=== PATIENT | female | born 1975 | race Caucasian/White ===

== ENCOUNTER → 2020-01-14 10:50 | Outpatient (BNVA) | payer OTHER, SELFPAY | PROVIDERS: Family Provider Nurse Practitioner Family; Visit Provider Nurse Practitioner Psychiatric/Mental Health | DX: F33.1 Major depressive disorder, recurrent, moderate (principal); F90.2 Attention-deficit hyperactivity disorder, combined type | CPT/HCPCS: 99213 ==

== ENCOUNTER → 2020-02-25 08:28 | Outpatient (BNVA) | payer OTHER, SELFPAY | PROVIDERS: Family Provider Nurse Practitioner Family; Visit Provider Nurse Practitioner Psychiatric/Mental Health | DX: F33.1 Major depressive disorder, recurrent, moderate (principal); F90.2 Attention-deficit hyperactivity disorder, combined type; F41.1 Generalized anxiety disorder | CPT/HCPCS: 99212 ==

== ENCOUNTER → 2020-04-07 08:35 | Outpatient (BNVA) | payer OTHER, SELFPAY | PROVIDERS: Family Provider Nurse Practitioner Family; Visit Provider Nurse Practitioner Psychiatric/Mental Health | DX: F90.2 Attention-deficit hyperactivity disorder, combined type (principal); F33.1 Major depressive disorder, recurrent, moderate | CPT/HCPCS: 99212 ==

== ENCOUNTER → 2020-08-08 09:04 | Outpatient (BNVA) | payer OTHER, SELFPAY | PROVIDERS: Family Provider Nurse Practitioner Family; Visit Provider Nurse Practitioner Psychiatric/Mental Health | DX: F90.2 Attention-deficit hyperactivity disorder, combined type (principal); F33.1 Major depressive disorder, recurrent, moderate | CPT/HCPCS: 99212 ==

== ENCOUNTER → 2020-09-19 07:42 | Outpatient (BNVA) | payer OTHER, SELFPAY | PROVIDERS: Family Provider Nurse Practitioner Family; Visit Provider Nurse Practitioner Psychiatric/Mental Health | DX: F33.1 Major depressive disorder, recurrent, moderate (principal); F90.2 Attention-deficit hyperactivity disorder, combined type; R41.3 Other amnesia; Z63.0 Problems in relationship with spouse or partner | CPT/HCPCS: 99212 ==

== ENCOUNTER → 2020-11-15 08:30 | Outpatient (BNVA) | payer OTHER, SELFPAY | PROVIDERS: Family Provider Nurse Practitioner Family; Visit Provider Nurse Practitioner Psychiatric/Mental Health | DX: F90.2 Attention-deficit hyperactivity disorder, combined type (principal); Z63.0 Problems in relationship with spouse or partner; F33.1 Major depressive disorder, recurrent, moderate | CPT/HCPCS: 99213 ==

== ENCOUNTER → 2021-02-14 09:06 | Outpatient (BNVA) | payer OTHER, SELFPAY | PROVIDERS: Family Provider Nurse Practitioner Family; Visit Provider Nurse Practitioner Psychiatric/Mental Health | DX: F90.2 Attention-deficit hyperactivity disorder, combined type (principal); F33.1 Major depressive disorder, recurrent, moderate; Z63.0 Problems in relationship with spouse or partner | CPT/HCPCS: 99213 ==

== ENCOUNTER → 2021-03-23 08:28 | Outpatient (BNVA) | payer OTHER, SELFPAY | PROVIDERS: Family Provider Nurse Practitioner Family; Visit Provider Nurse Practitioner Psychiatric/Mental Health | DX: F90.2 Attention-deficit hyperactivity disorder, combined type (principal); F33.1 Major depressive disorder, recurrent, moderate; Z63.0 Problems in relationship with spouse or partner | CPT/HCPCS: 99214 ==

== ENCOUNTER 2021-06-24 18:04 | Emergency (ER) | payer BC, SELFPAY ==
[2021-06-24 18:31] VITALS: BP 131/76; PULSE 73; RESP 18; TEMP 36.4; O2SAT 98; BMI 33.6
--- NOTE | 2021-06-24 19:04 | CTR_ITS ---
PROCEDURE INFORMATION: Exam: CT Lumbar Spine Without Contrast Exam date and time: 06/24/2021 7:04 PM Age: 45 years old Clinical indication: Low back pain; Patient HX: C/O R flank/lbp w/o injury or dysuria; Additional info: Right back pain TECHNIQUE: Imaging protocol: Computed tomography images of the lumbar spine without contrast. Radiation optimization: All CT scans at this facility use at least one of these dose optimization techniques: automated exposure control; mA and/or kV adjustment per patient size (includes targeted exams where dose is matched to clinical indication); or iterative reconstruction. COMPARISON: CT kidney stone [id number] 06/24/2021 7:44 PM RADIATION DOSE METRICS: Total DLP (mGy-cm): 2147.4 FINDINGS: Vertebrae: Multilevel small lumbar marginal osteophyte formations. Multilevel mild facet arthropathy. No acute fracture. Normal alignment. There are mild to moderate degenerative changes across the sacroiliac joints, left greater than right. There is a transitional lumbosacral vertebra designated L5 for the purposes of this study. The L5 vertebra of bears a bat wing type left transverse process articulating with the sacrum. There are degenerative changes across this articulation. L1-L2: No significant disc protrusion. No severe spinal canal stenosis. No significant neural foraminal narrowing. L2-L3: No significant disc protrusion. No severe spinal canal stenosis. No significant neural foraminal narrowing. L3-L4: No significant disc protrusion. No severe spinal canal stenosis. No significant neural foraminal narrowing. L4-L5: No significant disc protrusion. No severe spinal canal stenosis. No significant neural foraminal narrowing. L5-S1: No significant disc protrusion. No severe spinal canal stenosis. No significant neural foraminal narrowing. Soft tissues: Unremarkable. CT/CT lumbar spine wo con* [id number] IMPRESSION: 1. There is a transitional lumbosacral vertebra designated L5 for the purposes of this study. The L5 vertebra of bears a bat wing type left transverse process articulating with the sacrum. There are degenerative changes across this articulation. 2. There are degenerative changes in the lumbar spine as described above. No evidence for acute fracture. 3. There are dell-gu-ynohpdoi degenerative changes across the sacroiliac joints, left greater than right. Radiation Dose CTDIVOL = (mGy): DLP = 2147.4 (mGy-cm)
--- NOTE | 2021-06-24 19:04 | CTR_ITS ---
PROCEDURE INFORMATION: Exam: CT Abdomen And Pelvis Without Contrast Exam date and time: 06/24/2021 7:04 PM Age: 45 years old Clinical indication: Abdominal pain; Right; Patient HX: C/O R flank/lbp w/o injury or dysuria; Additional info: R flank pain TECHNIQUE: Imaging protocol: Computed tomography of the abdomen and pelvis without contrast. Radiation optimization: All CT scans at this facility use at least one of these dose optimization techniques: automated exposure control; mA and/or kV adjustment per patient size (includes targeted exams where dose is matched to clinical indication); or iterative reconstruction. COMPARISON: CR Pelvis AP 1 or 2 views* [id number] 05/03/2018 11:37 PM RADIATION DOSE METRICS: Total DLP (mGy-cm): 1683.3 FINDINGS: Liver: Normal. No mass. Gallbladder and bile ducts: Normal. No calcified stones. No ductal dilation. Pancreas: Normal. No ductal dilation. Spleen: Normal. No splenomegaly. Adrenal glands: Normal. No mass. Kidneys and ureters: Normal. No hydronephrosis. Stomach and bowel: Colonic constipation is present. Appendix: No evidence of appendicitis. Intraperitoneal space: There is a physiologic amount of free fluid in the pelvis. Vasculature: Unremarkable. No abdominal aortic aneurysm. Lymph nodes: Unremarkable. No enlarged lymph nodes. Urinary bladder: Unremarkable as visualized. Reproductive: Unremarkable as visualized. Bones/joints: Unremarkable. No acute fracture. Soft tissues: Unremarkable. CT/CT kidney stone [id number] IMPRESSION: Colonic constipation is present. Radiation Dose CTDIVOL = (mGy): DLP = 1683.3 (mGy-cm)
--- NOTE | 2021-06-24 19:14 | ED_ITS ---
HPI - Back Pain/Injury General: Chief Complaint: Back Pain/Injury Stated Complaint: side and back pain Time Seen by Provider: 06/24/21 18:39 History of Present Illness: HPI Narrative: 45-year-old female with a history of right-sided back pain for the last 2 days. She notes right-sided back pain to the upper lumbar region, that radiates around to her right flank. No real change in her urine. No dysuria. No fever. No nausea or vomiting. She notes that she had coughed a few times yesterday, and the pain began to worsen after that. She presented to urgent care and was sent here. MD elicited complaint: back pain Pertinent past history: prior back pain (Similar pains in the past but not this bad.) Onset (ago): day(s) Timing: constant and progressively worsening Severity: moderate Quality: sharp and stabbing Location: lumbar spine and right flank Radiation: abdomen Exacerbating factors: movement Context: other (ukwn) Associated symptoms: Reports abdominal pain; Deny dysuria, fecal incontinence, fever(s), nausea, numbness, tingling/numbness/burning or vomiting Review of Systems Const: Denies: fever(s) Card: Denies: chest pain or palpitations Resp: Reports: non-productive cough; Denies: dyspnea or wheezing GI: Reports: abdominal pain; Denies: nausea, vomiting or fecal incontinence : Denies: dysuria Neuro: Denies: numbness in extremities or weakness in extremities PFS ED PFSH: Medical History (Updated 06/24/21 @ 21:07 by Heladio Krishna DO) ADHD (attention deficit hyperactivity disorder), combined type ADHD symptoms are responsive to current Vyvanse dosage. No side effects or cardiovascular side effects reported. Major depressive disorder, recurrent, moderate See comments below. Psychiatric care Social History (Updated 01/14/20 @ 11:09 by Rakel Parry LPN) Smoking and tobacco status: never smoked Physical Exam Const: GENERAL APPEARANCE: cooperative; not ill appearing and not frail appearing Chest: COMMONS NORMALS: normal inspection of the chest Resp: COMMON NORMALS: normal respiratory effort, No retractions, No use of accessory muscles and clear to auscultation bilaterally AUSCULTATION: clear to auscultation bilaterally Cardio: COMMON NORMALS: regular rate and regular rhythm RATE: regular rate RHYTHM: regular rhythm GI: COMMON NORMALS: Normal to inspection, nondistended, normoactive bowel sounds present, Soft to palpation and non-tender PALPATION: Yes Soft to palpation : BLADDER/KIDNEY EXAM: Yes CVA tenderness on the right Back/Pelvis: GENERAL BACK: Yes CVA tenderness OTHER: mid Line tenderness lumbar spine, tenderness to the right flank. No rash seen over the area pain is partially reproducible. Neuro: NOE COMA SCALE: document GCS findings Noe coma scale eye opening: Spontaneous Noe coma scale verbal response: Orientated [place] coma scale motor response: Obey commands Noe coma scale total score: 15 Course Vital Signs: Vital signs: Vital Signs Temperature 97.6 F 06/24/21 18:31 Pulse Rate 73 06/24/21 21:23 Respiratory Rate 16 06/24/21 21:23 Blood Pressure 137/81 06/24/21 21:23 Pulse Oximetry 99 06/24/21 21:23 MDM - Back Pain/Injury MDM Narrative: Medical decision making narrative: Laboratory is not remarkable. CT of the abdomen pelvis stone protocol reveals no acute findings. CT of the lumbar spine reveals significant degenerative change both of the lumbar spine, and sacroiliac joints. She will be treated with a tapering dose of steroid from neuritis related to back pain Lab Data: Labs: Lab Results 06/24/21 06/24/21 06/24/21 Range/Units 19:45 19:45 19:45 WBC 9.1 (4.0-10.0) 10^3/ uL RBC 4.76 (4.1-5.3) 10^6/u L Hgb 14.6 (11.5-15.3) g/dL Hct 44.2 (37.0-47.0) % MCV 92.9 (81-99) fl MCH 30.7 (28.0-34.0) pg MCHC 33.0 (30.0-36.0) g/dL RDW 12.5 (12.1-15.1) % Plt Count 302 (130-400) 10^3/c mm MPV 10.1 (7.4-10.4) fL Neut % (Auto) 54.3 % Lymph % (Auto) 33.1 % [place] % (Auto) 7.6 % Eos % (Auto) 3.8 % Baso % (Auto) 1.0 % Neut # (Auto) 4.92 (1.8-7.7) 10^3/u L Lymph # (Auto) 3.0 (0.8-4.8) 10^3/u L [place] # (Auto) 0.7 (0.2-0.9) 10^3/u L Eos # (Auto) 0.3 (0.0-0.8) 10^3/u L Baso # (Auto) 0.1 (0.0-0.1) 10^3/u L Nucleated RBC % (a uto) 0 % Nucleated RBCs # 0.0 /100WBC D-Dimer 0.52 (0-0.59) ug/mIFE U Sodium 141 (136-145) mmol/L Potassium 4.0 (3.5-5.1) mmol/L Chloride 106 (98-107) mmol/L Carbon Dioxide 24 (22-29) mmol/L Anion Gap 15.0 (5-19) BUN 15 (6-20) mg/dL Creatinine 0.9 (0.5-0.9) mg/dL GFR Calculation 68.0 L (90-130) mL/min Glucose 94 (65-115) mg/dL Calculated Osmolal ity 293 (285-295) mOsm/k g Calcium 8.8 (8.5-10.5) mg/dL Total Bilirubin 0.3 (0.15-1.2) mg/dL AST 12 (0-32) U/L ALT 12 (0-33) U/L Alkaline Phosphata se 75 (35-105) IU/L C-Reactive Protein 0.5 (0.0-4.9) mg/L Total Protein 5.8 L (6.6-8.7) g/dL Albumin 3.8 (3.5-5.2) g/dL Globulin 2.0 (1.3-4.6) g/dL Lipase 37 (13-60) U/L HCG, Qual (Negative) Urine Color (Yellow) Urine Appearance (CLEAR) Urine pH (5-7) Ur Specific Gravit y (1.005-1.030) Urine Protein (Negative) Urine Glucose (UA) (Normal) Urine Ketones (Negative) Urine Blood (Negative) Urine Nitrate (Negative) Urine Bilirubin (Negative) Urine Urobilinogen (Negative) mg/dL Ur Leukocyte Jerica ase (Negative) 06/24/21 06/24/21 Range/Units 19:45 20:50 WBC (4.0-10.0) 10^3/ uL RBC (4.1-5.3) 10^6/u L Hgb (11.5-15.3) g/dL Hct (37.0-47.0) % MCV (81-99) fl MCH (28.0-34.0) pg MCHC (30.0-36.0) g/dL RDW (12.1-15.1) % Plt Count (130-400) 10^3/c mm MPV (7.4-10.4) fL Neut % (Auto) % Lymph % (Auto) % [place] % (Auto) % Eos % (Auto) % Baso % (Auto) % Neut # (Auto) (1.8-7.7) 10^3/u L Lymph # (Auto) (0.8-4.8) 10^3/u L [place] # (Auto) (0.2-0.9) 10^3/u L Eos # (Auto) (0.0-0.8) 10^3/u L Baso # (Auto) (0.0-0.1) 10^3/u L Nucleated RBC % (a uto) % Nucleated RBCs # /100WBC D-Dimer (0-0.59) ug/mIFE U Sodium (136-145) mmol/L Potassium (3.5-5.1) mmol/L Chloride (98-107) mmol/L Carbon Dioxide (22-29) mmol/L Anion Gap (5-19) BUN (6-20) mg/dL Creatinine (0.5-0.9) mg/dL GFR Calculation (90-130) mL/min Glucose (65-115) mg/dL Calculated Osmolal ity (285-295) mOsm/k g Calcium (8.5-10.5) mg/dL Total Bilirubin (0.15-1.2) mg/dL AST (0-32) U/L ALT (0-33) U/L Alkaline Phosphata se (35-105) IU/L C-Reactive Protein (0.0-4.9) mg/L Total Protein (6.6-8.7) g/dL Albumin (3.5-5.2) g/dL Globulin (1.3-4.6) g/dL Lipase (13-60) U/L HCG, Qual Negative (Negative) Urine Color Yellow (Yellow) Urine Appearance Clear (CLEAR) Urine pH 5 (5-7) Ur Specific Gravit y 1.020 (1.005-1.030) Urine Protein Neg (Negative) Urine Glucose (UA) Norm (Normal) Urine Ketones Negative (Negative) Urine Blood Neg (Negative) Urine Nitrate Negative (Negative) Urine Bilirubin Neg (Negative) Urine Urobilinogen 4 H (Negative) mg/dL Ur Leukocyte Jerica ase Negative (Negative) Discharge Plan Discharge Patient Disposition: Home Clinical Impression: Lumbar spondylosis, Constipation Condition: Stable Prescriptions: New hydrocodone-acetaminophen 5-325 mg tablet 1 tab PO Q8H PRN (Reason: pain) Qty: 7 RF: 0 Medrol (Hector) 4 mg tablets,dose pack See Rx Instructions .ROUTE .COMPLEX Qty: 21 RF: 0 No Action cyclobenzaprine 10 mg tablet 10 mg PO TID PRN (Reason: muscle spasm) RF: 0 simvastatin 10 mg tablet 10 mg PO .QHS RF: 0 diphenhydramine-acetaminophen [Tylenol PM Extra Strength] 25-500 mg tablet 2 tab PO .QHS PRNRF: 0 metformin 500 mg tablet 500 mg PO BID RF: 0 metoprolol succinate 50 mg tablet extended release 24 hr 50 mg PO DAILY RF: 0 buspirone 15 mg tablet 15 mg PO .q evening Qty: 30 RF: 1 escitalopram oxalate 20 mg tablet 20 mg PO DAILY Qty: 30 RF: 1 Vyvanse 60 mg capsule 60 mg PO QAM 30 Days Qty: 30 RF: 0 lorazepam [Ativan] 1 mg tablet 1 mg PO .QHS PRN (Reason: sleep) 30 Days Qty: 30 RF: 2 Discharge Orders: Discharge ED (Routine); Ordered 06/24/21 Ordered By: Heladio Krishna Referrals: Harley,CÉSAR MarieN [Primary Care Provider] - Patient Instructions: Constipation (ED), Back Pain (ED), Opioid Safety Activity Restrictions/Additional Instructions: Return for urinary problems, fever greater than 100, worsening pain despite treatment, weakness, loss of control of of your bowel or bladder function, any other concerning symptoms. Coding Level of Care Code ED Assistant Professor Of Biology for Chg Fwd Exam Detailed
[2021-06-24] MEDS: ketorolac 30 mg/mL INJ 15 MG IVP (19:40)
[2021-06-24 19:58] LABS: Basophils # 0.1 10^3/uL (0.0-0.1); Eosinophils # 0.3 10^3/uL (0.0-0.8); Eosinophils % 3.8 %; Hematocrit 44.2 % (37.0-47.0); Hemoglobin 14.6 g/dL (11.5-15.3); Lymphocytes % 33.1 %; Mean Corpuscular Hemoglobin 30.7 pg (28.0-34.0); Mean Corpuscular Volume 92.9 fl (81-99); Mean Platelet Volume 10.1 fL (7.4-10.4); Monocytes # 0.7 10^3/uL (0.2-0.9); Monocytes % 7.6 %; Neutrophils # 4.92 10^3/uL (1.8-7.7); Neutrophils % 54.3 %; Nucleated Red Blood Cells % 0 %; Platelet Count 302 10^3/cmm (130-400); Red Blood Count 4.76 10^6/uL (4.1-5.3); Red Cell Distribution Width 12.5 % (12.1-15.1); White Blood Count 9.1 10^3/uL (4.0-10.0)
[2021-06-24 20:11] LABS: HCG, Serum Qual Negative (Negative)
[2021-06-24 20:16] LABS: D Dimer 0.52 ug/mIFEU (0-0.59)
[2021-06-24 20:18] LABS: Alanine Aminotransferase 12 U/L (0-33); Albumin Level 3.8 g/dL (3.5-5.2); Alkaline Phosphatase 75 IU/L (35-105); Aspartate Amino Transferase 12 U/L (0-32); Blood Urea Nitrogen 15 mg/dL (6-20); C Reactive Protein 0.5 mg/L (0.0-4.9); Calcium 8.8 mg/dL (8.5-10.5); Carbon Dioxide 24 mmol/L (22-29); Chloride 106 mmol/L (98-107); Creatinine Clr Calc Pharmacy 83.0018; Glucose 94 mg/dL (65-115); Lipase 37 U/L (13-60); Osmolality Calculated 293 mOsm/kg (285-295); Sodium 141 mmol/L (136-145); Total Bilirubin 0.3 mg/dL (0.15-1.2); Total Protein 5.8 g/dL (6.6-8.7)
[2021-06-24 20:47] VITALS: BP 134/74; PULSE 65; RESP 16; O2SAT 99
[2021-06-24 20:52] LABS: Add Urine Microscopic? NO; Charge for UA Resulting for Rev
[2021-06-24 20:56] LABS: Bilirubin Urine Neg (Negative); Blood Urine Neg (Negative); Glucose Urine UA Norm (Normal); Ketones Urine Negative (Negative); Leukocyte Esterase Urine Negative (Negative); Nitrate Urine Negative (Negative); Protein Urine Neg (Negative); Urine Appearance Clear (CLEAR); Urine Color Yellow (Yellow); Urobilinogen Urine 4 mg/dL (Negative); pH Urine 5 (5-7)
[2021-06-24 21:23] VITALS: BP 137/81; PULSE 73; RESP 16; O2SAT 99
== END 2021-06-24 21:33 | disposition home or self-care (01) ==
PROVIDERS: Emergency Provider Emergency Medicine; PCP Nurse Practitioner Family
DX: M47.816 Spondylosis without myelopathy or radiculopathy, lumbar region (principal); K59.00 Constipation, unspecified; Z79.84 Long term (current) use of oral hypoglycemic drugs
CPT/HCPCS: 72131; 74176; 80053; 81003; 83690; 84703; 85025; 85378; 86140; 96374; 99283; J1885

== ENCOUNTER 2021-07-14 14:04 | Outpatient (CLI) | payer BC, SELFPAY ==
--- NOTE | 2021-07-14 14:25 | MM_ITS ---
WS: [id number] BILATERAL DIGITAL DIAGNOSTIC MAMMOGRAM MAMMOGRAPHY WITH CAD CLINICAL INFORMATION: YESENIA AXILLARY PAIN COMPARISON: October 14, 2019 TECHNIQUE: Bilateral CC, MLO, and ML views. FINDINGS: Scattered fibroglandular densities bilaterally. Punctate calcifications left breast. No suspicious focal mass, asymmetry, calcifications, or architectural distortion. Ultrasound both axi lla is pending. ULTRASOUND BREAST BILATERAL TECHNIQUE: Ultrasound bilateral breast focused area of concern. CLINICAL INFORMATION: YESENIA AXILLARY PAIN COMPARISON: None. FINDINGS: Ultrasound bilateral axilla. Normal size left axillary lymph node measuring 9 x 7 mm. No suspicious a xillary findings. MM/[place] [id number] IMPRESSION: BI-RADS: 2-Benign FOLLOW UP: 1 Year Follow-up Recommend return to annual screening mammography.
== END 2021-07-14 14:05 | disposition home or self-care (01) ==
LOC: RADSHAW 14:08
PROVIDERS: PCP Nurse Practitioner Family; Visit Provider Nurse Practitioner Family
DX: M79.621 Pain in right upper arm (principal); M79.622 Pain in left upper arm
CPT/HCPCS: 76642; 77066

== ENCOUNTER 2021-11-07 09:32 | Emergency (ER) | payer SELFPAY ==
[2021-11-07 10:48] VITALS: BP 145/84; PULSE 87; RESP 16; TEMP 37; O2SAT 99
--- NOTE | 2021-11-07 10:53 | W.ED.COVID ---
HPI - COVID General: Chief Complaint: COVID symptoms Stated Complaint: covid+ Time Seen by Provider: 11/07/21 10:51 Triage information: Has fever, cough or shortness of breath. No known COVID + exposure last 14 days History of Present Illness: HPI Narrative: Patient test positive work today for Covid. Symptoms started last night. Patient complains about body aches chills. Desiring to have MCA infusion. Denies any significant shortness of breath, headache, loss of taste or smell. MD complaint: known COVID positive and has COVID symptoms Prior covid testing: yes, results known Prior testing date: 11/07/21 COVID 19 common symptoms: positive fever(s), chills, fatigue, body aches and nasal congestion; negative non-productive cough, productive cough, dyspnea, headache(s), nausea or vomiting COVID 19 other sytmptoms: negative chest pain Onset (ago): hour(s) Severity: mild Pertinent comorbid conditions: hypertension Treatment prior to arrival: none COVID Results: No Data to Display Review of Systems Const: Reports: fever(s), chills, body aches and fatigue Eyes: Denies: change in vision or blurry vision ENMT: Reports: nasal congestion Card: Denies: chest pain or dyspnea on exertion Resp: Denies: dyspnea, productive cough or non-productive cough GI: Denies: abdominal pain, nausea or vomiting Musc: Denies: extremity pain Skin/Breast: Denies: rash Neuro: Denies: headache(s) Psych: Denies: anxiety or depression Moiz/Lymph: Denies: easy bruising PFS ED PFSH: Medical History (Updated 11/07/21 @ 10:52 by SATISH Coleman) ADHD (attention deficit hyperactivity disorder), combined type ADHD symptoms are responsive to current Vyvanse dosage. No side effects or cardiovascular side effects reported. Major depressive disorder, recurrent, moderate See comments below. Psychiatric care Psychiatric care Social History (Updated 01/14/20 @ 11:09 by Rakel Sher LPN) Smoking and tobacco status: never smoked Physical Exam Const: COMMON NORMALS: no acute distress GENERAL APPEARANCE: cooperative Resp: COMMON NORMALS: normal respiratory effort GI: INSPECTION: Yes normal to inspection Psych: COMMON NORMALS: mental status grossly normal Skin: COMMON NORMALS: no rashes or lesions noted GENERAL SKIN EXAM: no rashes or lesions noted Course Vital Signs: Vital signs: Vital Signs Temperature 98.6 F 11/07/21 10:48 Pulse Rate 87 11/07/21 10:48 Respiratory Rate 16 11/07/21 10:48 Blood Pressure 145/84 11/07/21 10:48 Pulse Oximetry 99 11/07/21 10:48 MDM - COVID COVID Results: No Data to Display Discharge Plan Discharge Patient Disposition: Home Clinical Impression: COVID-19 Condition: Stable Prescriptions: New Decadron 6 mg tablet 6 mg PO DAILY Qty: 7 RF: 0 No Action hydrocodone-acetaminophen 5-325 mg tablet 1 tab PO Q8H PRN (Reason: pain) RF: 0 buspirone 15 mg tablet 15 mg PO .q evening Qty: 30 RF: 1 escitalopram oxalate 20 mg tablet 20 mg PO DAILY Qty: 30 RF: 1 cyclobenzaprine 10 mg tablet 10 mg PO TID PRN (Reason: muscle spasm) RF: 0 simvastatin 10 mg tablet 10 mg PO .QHS RF: 0 diphenhydramine-acetaminophen [Tylenol PM Extra Strength] 25-500 mg tablet 2 tab PO .QHS PRNRF: 0 metformin 500 mg tablet 500 mg PO BID RF: 0 metoprolol succinate 50 mg tablet extended release 24 hr 50 mg PO DAILY RF: 0 lorazepam 1 mg tablet 1 mg PO BID PRN (Reason: insomnia/anxiety ) Qty: 60 RF: 2 Vyvanse 60 mg capsule 60 mg PO QAM 30 Days Qty: 30 RF: 0 Vyvanse 60 mg capsule 60 mg PO QAM 30 Days Qty: 30 RF: 0 Discharge Orders: Discharge ED (Routine); Ordered 11/07/21 Ordered By: Chance Ferraro Referrals: Cynthia Souza APN [Primary Care Provider] - Discharge Diet: Usual diet Discharge Activity: Increase activity as tolerated Patient Instructions: COVID-19 (Coronavirus Disease 2019) (ED) Activity Restrictions/Additional Instructions: Follow-up with medical provider as directed. Take medications as prescribed. Return to the ER or your medical provider if condition worsens. Please read and understand discharge instructions. If any questions ask please. Call [facility] hotline at to set up an MCA infusion. Coding Level of Care Code ED Car Shakeout Operator for Ahmet Murry
[2021-11-07 11:18] VITALS: O2SAT 99
== END 2021-11-07 11:19 | disposition home or self-care (01) ==
PROVIDERS: Emergency Provider Nurse Practitioner Family; PCP Nurse Practitioner Family
DX: U07.1 COVID-19 (principal); Z79.84 Long term (current) use of oral hypoglycemic drugs
CPT/HCPCS: 99282

== ENCOUNTER 2021-11-09 08:34 | Outpatient (CLI) | payer OTHER, SELFPAY ==
[2021-11-09 08:42] VITALS: BP 158/82; PULSE 95; RESP 17; TEMP 36.7; O2SAT 99; BMI 49.1
[2021-11-09 09:13] VITALS: BP 131/81; PULSE 86; RESP 16; O2SAT 99
[2021-11-09 10:16] VITALS: BP 133/83; PULSE 77; RESP 16; TEMP 36.9; O2SAT 99
== END 2021-11-09 08:35 | disposition home or self-care (01) ==
LOC: OPS 08:44
PROVIDERS: PCP Nurse Practitioner Family; Visit Provider Nurse Practitioner Family
DX: U07.1 COVID-19 (principal)
CPT/HCPCS: 96365

== ENCOUNTER 2021-11-21 16:47 | Outpatient (CLI) | payer OTHER, SELFPAY ==
--- NOTE | 2021-11-21 | XR_ITS ---
WS: [id number] Exam: XR chest 2V* [id number] Date/Time of Exam: 11/21/2021 4:53 PM Reason For Exam: COUGH Comparison 05/03/2018. Findings: The lungs are clear and fully expanded. Costophrenic angles are sharp. No infiltrates. Bronchovascula r relief appears normal. Cardiac silhouette is unremarkable. Bony elements are intact. XR/XR chest 2V* [id number] IMPRESSION: Unremarkable chest radiograph.
== END 2021-11-21 16:48 | disposition home or self-care (01) ==
PROVIDERS: PCP Nurse Practitioner Family; Visit Provider Specialist
DX: R05.9 Cough, unspecified (principal)
CPT/HCPCS: 71046

== ENCOUNTER → 2022-07-19 09:21 | Outpatient (BNVA) | payer OTHER, SELFPAY | PROVIDERS: PCP Nurse Practitioner Family; Referring Provider Dermatology; Visit Provider Student in an Organized Health Care Education/Training Program | DX: M23.304 Other meniscus derangements, unspecified medial meniscus, left knee (principal) | CPT/HCPCS: 73560; 73565 ==

== ENCOUNTER 2022-07-31 07:52 | Outpatient (CLI) | payer OTHER, SELFPAY ==
--- NOTE | 2022-07-31 08:00 | MR_ITS ---
WS: [id number] MRI LEFT KNEE NONCONTRAST TECHNIQUE: Axial PD, coronal PD fat sat, coronal PD, sagittal PD, and sagittal PD fat-sat images obta ined. CLINICAL INFORMATION: Derangement of medial meniscus of left knee COMPARISON: FINDINGS: Distal quadriceps and patella tendons are intact. High-grade chronic tear of the ACL. This was presen t on the prior exam in 2018. Small suprapatellar effusion. Horizontal tear posterior horn medial meniscus extending to the articular surface and meniscal root. Chronic thinning of the lateral meniscus. Previously described bone contusions in 2018 have resolved. Medial and lateral collateral ligaments a re grossly intact. Normal popliteus. Normal popliteal fossa. Mild chondromalacia patella. No subchond ral edema. Normal medial and lateral patellar retinaculum. MR/MR knee LT wo con* [id number] IMPRESSION: 1. High-grade chronic tear of the ACL was present in 2018. Normal PCL. 2. New horizontal tear involving the posterior horn medial meniscus extending to the meniscal root and articular surface peripherally. This is new from previ ous. No acute lateral meniscal tears. 3. Normal medial and lateral collateral ligaments. 4. Mild chondromalacia patella. No subchondral edema. 5. Normal popliteal fossa. 6. Small suprapatellar effusion. Outbridge grading:
== END 2022-07-31 07:53 | disposition home or self-care (01) ==
LOC: RAD 07:53
PROVIDERS: Visit Provider Student in an Organized Health Care Education/Training Program
DX: M23.304 Other meniscus derangements, unspecified medial meniscus, left knee (principal); S83.512A Sprain of anterior cruciate ligament of left knee, initial encounter; X58.XXXA Exposure to other specified factors, initial encounter; M25.462 Effusion, left knee; M22.42 Chondromalacia patellae, left knee
CPT/HCPCS: 73721

== ENCOUNTER 2022-08-29 05:49 | Day surgery (SDC) | payer OTHER, SELFPAY ==
[2022-08-28 12:15] VITALS: BMI 36.6
[2022-08-29] VITALS (20 sets, daily range): BP systolic 113–144; BP diastolic 63–89; PULSE 78–123; RESP 12–18; TEMP 36.2–37; O2SAT 93–100
--- NOTE | 2022-08-29 | SCC_ITS ---
12 seconds of fluoroscopic guidance, for a cumulative dose of 0.3 mGy, was provided to Dr. Recinos by the radiology department. No permanent C-kori images were obtained. [facility]
[2022-08-29] MEDS: sodium chloride 0.9% 1,000 ML 30 ML IV (06:39)
[2022-08-29] MEDS: ketorolac 30 mg/mL INJ IVP (06:39)
[2022-08-29] MEDS: acetaminophen 1,000 MG/100 ML PIGGYBACK 400 MG IV (06:39)
[2022-08-29 06:44] LABS: OR HCG Qualitative Urine Negative (Negative)
--- NOTE | 2022-08-29 07:02 | W.PM.OPSUD ---
Surgery/Procedure H&P Update DATE OF PROCEDURE: August 29, 2022 DATE H&P PERFORMED: 08/17/22 CHANGES TO PREVIOUS DOCUMENTATION: None PREOP DIAGNOSIS: Left knee complete ACL tear, medial meniscus tear PRIMARY INDICATION FOR PROCEDURE: Left knee complete ACL tear and medial meniscus tear PLANNED PROCEDURE: Operation Date: 08/29/22 07:00 Proposed Procedures p LEFT KNEE DIAGNOSTIC AND SURGICAL ARTHROSCOPIC ASSISTED ANTERIOR CRUCIATE LIGAMENT RECONSTRUCTION WITH QUAD TENDON ALLOGRAFT [id number], PARTIAL MEDIAL MENISCECTOMY VERSUS MENISCAL REPAIR [id number],M23.304(Left) - Lc Recinos DO s PARTIAL MEDIAL MENISCECTOMY VERSUS MENISCAL REPAIR [id number]](Left) - Lc Recinos DO
--- NOTE | 2022-08-29 08:32 | ANES.PREANE2 ---
Pre-Anesthetic Assessment Height/Weight: Height 1.57 m Weight 90.718 kg Temp Pulse Resp BP Pulse Ox O2 Del Method 98.6 F 78 18 137/80 97 08/29/22 06:20 08/29/22 06:20 08/29/22 06:20 08/29/22 06:20 08/29/22 06:20 08/29/22 06:20 Preop Diagnosis: Left knee complete ACL tear, medial meniscus tear Operation Date: 08/29/22 07:00 Proposed Procedures p LEFT KNEE DIAGNOSTIC AND SURGICAL ARTHROSCOPIC ASSISTED ANTERIOR CRUCIATE LIGAMENT RECONSTRUCTION WITH QUAD TENDON ALLOGRAFT 84232, PARTIAL MEDIAL MENISCECTOMY VERSUS MENISCAL REPAIR 06771,M23.304(Left) - Lc Recinos DO s PARTIAL MEDIAL MENISCECTOMY VERSUS MENISCAL REPAIR [id number]](Left) - Lc Recinos DO Familial anesthetic complications: none Was Beta Conrado taken within 24 hours: N/A Was Clonidine taken within 24 hours: N/A Last intake: Intake Last Liquid Date 08/28/22 Last Liquid Time 20:30 Last Solid Date 08/28/22 Last Solid Time 19:00 Social No alcohol and No tobacco Exam alert, oriented x 3, clear to auscultation bilaterally and regular rate & rhythm Airway Submandibular: within normal limits Cervical ROM: within normal limits Mallampati: Class II Dentition: full Metabolic Diabetes Mellitus, Hyperlipidemia and Morbid Obesity Neuropsych Anxiety and Depression Anesthetic Plan ASA status: 2 Anesthesia: General and Regional (specify below) (adductor blk) Medications/Allergies Home Medications Medication Instructions Recorded Confirmed Last Taken Type diphenhydramine 25 2 tab PO .QHS PRN Sleep 01/14/20 08/29/22 08/28/22 20:00 History mg-acetaminophen 500 mg tablet (Tylenol PM Extra Strength) simvastatin 10 mg tablet 10 mg PO .QHS 01/14/20 08/29/22 08/28/22 20:00 History metformin 500 mg tablet 500 mg PO BID 06/20/21 08/29/22 08/28/22 08:00 History omeprazole 40 mg capsule,delayed 40 mg PO DAILY 02/22/22 08/29/22 08/29/22 05:15 History release lisdexamfetamine 60 mg capsule 60 mg PO QAM 30 days #30 caps 07/10/22 08/29/22 08/28/22 08:00 Rx (Vyvanse) escitalopram oxalate 20 mg tablet 20 mg PO DAILY #30 tabs 08/09/22 08/29/22 08/28/22 20:00 Rx lorazepam 1 mg tablet 1 mg PO BID PRN insomnia/anxiety 08/09/22 08/29/22 08/28/22 20:00 Rx #60 tabs Allergies Allergy/AdvReac Type Severity Reaction Status Date / Time No Known Allergies Allergy Verified 08/28/22 12:13 Current Medications Generic Name Dose Route Start Last Admin Trade Name Laura PRN Reason Stop Dose Admin Sodium Chloride 1,000 mls @ 30 mls/hr 08/29/22 06:15 08/29/22 06:39 Sodium Chloride 0.9% IV 08/30/22 06:14 30 mls/hr .Q24H BISHOP Administration PFSH Anesthesia Medical History (Updated 08/11/22 @ 22:28 by Lc Recinos DO) ADHD (attention deficit hyperactivity disorder), combined type ADHD symptoms are responsive to current Vyvanse dosage. No side effects or cardiovascular side effects reported. Derangement of medial meniscus of left knee Left ACL tear Major depressive disorder, recurrent, in partial remission Major depressive disorder, recurrent, moderate See comments below. Psychiatric care Psychiatric care Tear of medial meniscus of left knee Social History Smoking and tobacco status: never smoked Second hand smoke exposure: Yes (Occaxsionally.) Smoking risk assessment/counseling performed?: No Alcohol intake: never Desire information about alcohol rehabilitation?: No Counseling given: No Data Anesthesia Cardiac Studies: No Data to Display Anesthesia Procedures Nerve Block Nerve Block 1: Main Anesthesia: general anesthesia Time Out Performed: Yes Consent: requested by attending/covering physician, from patient, risks and benefits reviewed and patient agrees to proceed Nerve block location: adductor canal (left) Anesthesia monitors applied: pulse oximetry, EKG, BP cuff and oxygen Nerve block position: supine Anesthetic Used: ropivicaine 0.5% Amount of anesthesia used (mL): 20 Ultrasound used to: recognize landmarks Nerve Stimulator Used?: No Interscalene/Femoral BLK: 4 stimuplex 21 g needle used for position and inplane approach Injection: neg aspiration of heme Patient Tolerated Procedure: well Complications: none
--- NOTE | 2022-08-29 10:44 | PM.OP2 ---
Brief Operative Note Date of procedure: 08/29/22 Pre-op diagnosis: Left knee complete ACL tear, medial meniscus tear Post-op diagnosis: same Procedure Done: Left knee diagnostic and surgical arthroscopy, with arthroscopic assisted ACL reconstruction with quadricep tendon allograft, partial medial meniscectomy Surgeon: Lc Recinos Estimated blood loss (mL): 15 Complications: None Post-op Plan: Patient recovering well in PACU. Patient will receive appropriate discharge instructions as well as DVT prophylaxis and pain medication. ACL hinged knee brace on in place will be locked in full extension for patient to weight-bear partial weightbearing 30 to 50% utilizing crutches. We will progress her weightbearing in 2 weeks. Work on range of motion with full range of motion. patient to follow-up with Dr. Recinos in the office in 2 weeks. Condition: stable Disposition: same day Coding Level of Care Code Acute Supervisor Dock for Ahmet Murry
--- NOTE | 2022-08-29 10:45 | PC.NURSE ---
Physical Therapy notified of need for ACL hinged brace
--- NOTE | 2022-08-29 10:47 | PM.PACU ---
PACU note Narrative: Patient recovering with patient's distal pulses palpable. Patient toes warm well perfused. Dressing on in place clean dry and intact ACL hinged knee brace on in place. Patient able to wiggle toes plantarflex and dorsiflex ankle. Not sensation tact light touch distally. Exam: awake (See narrative for detailed exam ) Disposition: discharged
--- NOTE | 2022-08-29 10:48 | PM.OP ---
Operative Report Date of procedure: August 29, 2022 Pre-op diagnosis: Preop Diagnosis Left knee complete ACL tear, medial meniscus tear Post-op diagnosis: Same Chondromalacia grade 1 patellofemoral compartment chondromalacia grade 1 medial compartment Chondromalacia grade 1 lateral compartment Procedure done: Diagnostic and surgical arthroscopy left knee with arthroscopic assisted ACL reconstruction with quadricep tendon allograft (Arthrex graft link), partial medial meniscectomy Implants: Arthrex graft link allograft ACL Tight rope ABS button and internal brace ligament augmentation 2 x biocomposite Arthrex 4.75 swivel locks. Surgeon: Lc Recinos DO Estimated blood loss: 15 mL 114 minutes IV fluids: See anesthesia record Complications: None Findings: See operative report narrative Condition: stable Disposition: same day Brief History: Cortney Bergman is a pleasant 46-year-old female who was seen and worked up in the outpatient setting and an MRI found to have a complete ACL tear as well as a medial meniscus tear. She states she had had a prior partial tear of her ACL but now this is went on to being complete. She did complain of some episodes of recurrent instability and she felt this is led to her meniscal tear. We had a long thoughtful discussion about her treatment options as far as leaving the ACL alone and just fixing the meniscus she does understand the risk benefits complication alternatives to surgical and nonsurgical treatment options. At this point given the persistent pain as well as feelings of instability and not trusting her knee as well she is still young active and well-maintained joint space she would like to have her ACL reconstructed alongside meniscus repair versus partial meniscectomy. Once again she understands the risk benefits complication alternatives to each treatment option she agrees to shared decision made to proceed with surgical intervention. We will proceed with a diagnostic and surgical arthroscopy of the left knee with arthroscopic assisted ACL reconstruction utilizing quadricep tendon allograft and medial meniscus repair versus partial meniscectomy. Consent obtained. Agrees to proceed with surgery. All questions answered. Procedure: Patient seen evaluated in the preoperative holding area. Consent was reviewed with patient correct extremity was then marked. Patient was then seen evaluated by the anesthesia department and once cleared for surgery she was then taken back to the operative suite and placed on the operative table in supine position all bony prominences well-padded. Patient underwent anesthesia per the anesthesia department. The left lower extremity had a nonsterile tourniquet applied. The foot of the bed was then dropped all legs were appropriately secured. The left lower extremity was then prepped and draped in standard orthopedic fashion. Final timeout performed.. Patient received appropriate preoperative antibiotics. Knee was examined preoperatively found to have a pivot shift and a positive Katherine's. Esmarch was used to exsanguinate the left lower extremity and tourniquet was insufflated. Standard diagnostic and surgical arthroscopy was performed of the left knee starting with an inferior lateral portal has my arthroscope visualization. Suprapatellar pouch free of loose bodies patellofemoral joint inflamed synovium however no significant chondromalacia only grade 1. Medial gutter clear of loose bodies medial compartment showed a bucket-handle tear flipped into the intercondylar notch. I then established my medial working portal in vertical fashion. I then utilized the blunt probe to reduce the bucket-handle tear to evaluate if this would be repairable or not. At this point in time I then noticed that this tear was within the white white zone peripherally. This tear was nonrepairable and was noted to not have just a simple clean meniscal tear pattern this was complex in nature near repairable. As result decision was made to perform a left knee partial medial meniscectomy I utilized the arthroscopic shaver and biter to perform partial medial meniscectomy to remove the bucket-handle tear. I then probed the meniscal root which was intact and stable. I then anneal the edges with a thermal wand of the partial medial meniscectomy and this was all taken to stable meniscal tissue and this completed my partial medial meniscectomy Looked at the intercondylar notch and noted the complete ACL tear off the lateral femoral condyle this point time the allograft was then set to thaw. Then performed debridement of the ACL left the footprint for anatomic landmarks for tibial tunnel placement. I then debrided the intercondylar notch and performed a small notchplasty for appropriate graft shuttling and bone marrow stimulation. I utilized thermal wand to identify the back wall of the lateral femoral condyle for appropriate anatomic placement of my femoral tunnel. Next I evaluated the lateral compartment which showed no meniscal tear and had grade I chondromalacia. The lateral gutter inspected free of loose bodies. I did evaluate the retrograde she had space no loose bodies were noted. At this point time I prepped my allograft on the back table my total graft length was 67 mm. We had 15 mm for the femoral tunnel of soft tissue in my suture as well as then roughly 18 mm plan for with my tibial tunnel suture. At this point time we made our adjustments to her tibial tunnel appropriately. Next I reintroduced the arthroscope into the knee and we proceeded with drilling my femoral tunnel. We utilized the outside in guides. I had direct visualization of the back wall and placed my femoral guide in appropriate position leaving roughly 2 to 3 mm of backwall left. The size for my graft was 10 and 10.5 mm. 10 mm drill tunnel for the femur guidance. I then drilled my flip cutter reamer utilizing the guide once I confirmed that this was appropriately placed I then set the reverse flip cutter to 10 mm and reamed to a femoral socket to roughly 25 mm. This was then removed and introduced the arthroscopic shaver to free of all bone debris. Once this was done I then utilized my shuttling suture passed this and utilize a hemostat for later graft passage. Next I plan for my tibial tunnel. I then utilized my tibial tunnel guide set at appropriate measurement accommodating my intra-articular graft distance. With care to make sure that our graft does not bottom out while tensioning. Incision was made on the anterior medial face of the tibia. Guide was set directly to bone I then drilled and had excellent anatomic placement at the resting tibial footprint of the ACL. I then used my flip cutter and set it to 10.5 mm and took this down to 30 mm for my tibial bone tunnel. I then introduced my shuttling stitch to grasp this and pulled both the femur and the tibial shuttling stitch out of the anteromedial portal. At this point time I was ready for passing of my graft. I incised my portal site to accommodate for the graft passage. Femur suture loops were then grasped and I shuttled the femoral end of my graft length into the femoral plug this was held in appropriate back tension by my assistant maintenance manager. I shuttled the Arthrex button and once it passed the tunnel it then did flip I brought in mini C arm noted this appeared to be not directly onto bone and as a result I made a small incision extended from my lateral incision where my guide was placed to verify button this was outside of the IT band I then incised the IT band watched as the button flipped as my assistant maintenance manager pulled back tension and this flipped directly onto bone. At this point they held back tension I utilized my tibial shuttling suture to shuttle my tibial sutures into the tibial tunnel. I then sequentially pulled and introduced the graft into the tibial tunnel this had excellent placement with no difficulties. This is an appropriate position and tension. While holding tension in full extension I then introduced the Arthrex tibial button. My sutures as well as my internal brace were passed through this and I sequentially tightened down my ACL button. At this point I made sure all slack was out of the internal brace and then sequentially tensioned my tibia. Once tibia was then tensioned I then performed multiple Katherine's and range the knee 30x2 get creep out of the graft. I next went in attention to the femur side 1 final time which had excellent tension and then tensioned lastly at the tibia. This completed and had excellent fixation with a firm endpoint with my Katherine's examination negative pivot shift. I then cleared off the periosteum distally loaded up my internal brace with a Arthrex 475 swivel lock I sequentially drilled and then tapped and attempted to place my 475 swivel lock. This appeared to be stripping and I subsequently removed the swivel lock and loaded the new one redrilled read tapped with a larger tap and then subsequently impacted my 4.75 swivel lock Arthrex to complete my internal brace for backup fixation. Swivel lock had no pullout. Sutures excess were cut. The tensioning sutures of the tibia were tensioned 1 final time and sequentially tied and suture excess suture was cut. At this point time is completed the procedure. All wounds were then thoroughly irrigated. I brought the arthroscope in for a final x-ray of a well tensioned ACL reconstruction. Wounds were then irrigated arthroscope removed and all fluid was suctioned out of the joint. Tourniquet was deflated. Hemostasis satisfactory. Incisions closed with 0 Vicryl 2-0 Vicryl Monocryl Steri-Strips 4 x 4's ABD Curlex soft roll and an Koby wrap ACL hinged brace was then applied. This was locked in full extension. This was placed on before patient woke up. Patient was awakened from anesthesia and taken to PACU in stable condition. Disposition: Patient will be taken to PACU in stable condition. ACL hinged brace on in place. Patient will be partial weightbearing 30 to 50% utilizing crutches and will begin progressing her weightbearing in 2 weeks. We will get her set up with physical therapy. She will follow-up with Dr. Recinos in 2 weeks. Given appropriate discharge instructions as well as pain medication and DVT prophylaxis postoperatively.
--- NOTE | 2022-08-29 11:07 | PC.NURSE ---
Physical Therapy here with ACL brace
[2022-08-29] MEDS: fentaNYL 50 mcg/mL INJ 2mL IVP ×2 (11:11→11:33)
[2022-08-29] MEDS: HYDROcodone-acetaminophen 5-325 mg Tablet 1 TAB PO (12:05)
--- NOTE | 2022-08-29 13:56 | SUR.PHASEII ---
Phase II complete at 1300, awaiting HOME to bring walker for patient to be sent home with.
--- NOTE | 2022-08-29 13:58 | SUR.PHASEII ---
Walker delivered at 1340. Patient instructed on use. Patient then discharged at 1345 with daughter.
--- NOTE | 2022-08-29 17:39 | ANE.PACU2 ---
Inpatient post-anesthesia follow up: Airway intact: Yes Vital signs: Temperature 97.8 F Pulse Rate 101 Respiratory Rate 16 Blood Pressure 137/79 Pulse Oximetry 93 Oxygen Delivery Me thod Room Air Oxygen Flow Rate 8 Fraction of Inspir ed Oxygen Hydration adequate: Yes Nausea and vomiting: No Pain level: 3 Mental status: Baseline
[2022-08-30 06:17] LABS: Glucose Point of Care 139 mg/dL (70-110)
== END 2022-08-29 13:58 | disposition home or self-care (01) ==
PROVIDERS: Anesthesiology; PCP Family Medicine; Visit Provider Student in an Organized Health Care Education/Training Program
PROC: (CPT 27407; principal; 2022-08-29 07:00)
PROC: (CPT 29881; 2022-08-29 07:00)
DX: S83.512A Sprain of anterior cruciate ligament of left knee, initial encounter (principal); S83.242A Other tear of medial meniscus, current injury, left knee, initial encounter; X58.XXXA Exposure to other specified factors, initial encounter; E11.9 Type 2 diabetes mellitus without complications; E78.5 Hyperlipidemia, unspecified; E66.01 Morbid (severe) obesity due to excess calories; Z68.36 Body mass index [BMI] 36.0-36.9, adult; F41.9 Anxiety disorder, unspecified; F32.A Depression, unspecified; Z79.84 Long term (current) use of oral hypoglycemic drugs
CPT/HCPCS: 29881; 29888; 36416; 73560; 76000; 82962; 84703; C1713; J0131; J1100; J1170; J1200; J1885; J2250; J2370; J2405; J2704; J2795; J3010; J3490; J7030

== ENCOUNTER 2022-08-29 14:42 | Outpatient (CLI) | payer OTHER, SELFPAY | END 2022-08-29 14:43 | disposition home or self-care (01) | LOC: SPT 14:43 | PROVIDERS: PCP Family Medicine; Visit Provider Student in an Organized Health Care Education/Training Program | DX: Z46.89 Encounter for fitting and adjustment of other specified devices (principal); S83.512D Sprain of anterior cruciate ligament of left knee, subsequent encounter; S83.242D Other tear of medial meniscus, current injury, left knee, subsequent encounter; X58.XXXD Exposure to other specified factors, subsequent encounter | CPT/HCPCS: 97760; L1832 ==

== ENCOUNTER 2022-08-31 13:46 | Outpatient (CLI) | payer OTHER, SELFPAY ==
[2022-08-31 14:02] LABS: Basophils # 0.1 10^3/uL (0.0-0.1); Basophils % 1.1 %; Eosinophils # 0.3 10^3/uL (0.0-0.8); Eosinophils % 3.7 %; Hematocrit 40.6 % (37.0-47.0); Hemoglobin 13.8 g/dL (11.5-15.3); Lymphocytes # 2.3 10^3/uL (0.8-4.8); Lymphocytes % 30.9 %; Mean Corpuscular Hemoglobin 31.4 pg (28.0-34.0); Mean Corpuscular Volume 92.3 fl (81-99); Mean Platelet Volume 8.7 fL (7.4-10.4); Monocytes # 0.5 10^3/uL (0.2-0.9); Monocytes % 6.7 %; Neutrophils # 4.22 10^3/uL (1.8-7.7); Neutrophils % 57.3 %; Nucleated Red Blood Cells % 0 %; Platelet Count 310 10^3/cmm (130-400); Red Cell Distribution Width 12.6 % (12.1-15.1); White Blood Count 7.4 10^3/uL (4.0-10.0)
== END 2022-08-31 13:47 | disposition home or self-care (01) ==
LOC: LAB 13:49
PROVIDERS: PCP Family Medicine; Visit Provider Family Medicine
DX: D70.9 Neutropenia, unspecified (principal)
CPT/HCPCS: 36415; 85025

== ENCOUNTER 2022-09-07 06:00 | Outpatient (RCR) | payer OTHER, SELFPAY | END 2022-10-03 23:59 | disposition home or self-care (01) | LOC: SPT 06:00 | PROVIDERS: PCP Family Medicine; Visit Provider Student in an Organized Health Care Education/Training Program | DX: M23.612 Other spontaneous disruption of anterior cruciate ligament of left knee (principal); Z47.89 Encounter for other orthopedic aftercare | CPT/HCPCS: 97110; 97140; 97161 ==

== ENCOUNTER 2022-10-04 06:00 | Outpatient (RCR) | payer OTHER, SELFPAY | END 2022-11-03 23:59 | disposition home or self-care (01) | LOC: SPT 06:00 | PROVIDERS: PCP Family Medicine; Visit Provider Student in an Organized Health Care Education/Training Program | DX: Z47.89 Encounter for other orthopedic aftercare (principal); M23.612 Other spontaneous disruption of anterior cruciate ligament of left knee | CPT/HCPCS: 97110 ==

== ENCOUNTER → 2022-12-31 13:17 | Outpatient (BNVA) | payer OTHER, SELFPAY | PROVIDERS: PCP Family Medicine; Visit Provider Student in an Organized Health Care Education/Training Program | DX: S83.242A Other tear of medial meniscus, current injury, left knee, initial encounter (principal); S83.512A Sprain of anterior cruciate ligament of left knee, initial encounter; X58.XXXA Exposure to other specified factors, initial encounter | CPT/HCPCS: 73560; 73565 ==

== ENCOUNTER → 2023-10-11 09:15 | Outpatient (BNVA) | payer OTHER, SELFPAY | PROVIDERS: PCP Family Medicine; Visit Provider Nurse Practitioner Women's Health | DX: N89.8 Other specified noninflammatory disorders of vagina (principal) | CPT/HCPCS: 87070; 87205 ==

== ENCOUNTER → 2023-10-16 15:30 | Outpatient (BNVA) | payer OTHER, SELFPAY | PROVIDERS: PCP Family Medicine; Visit Provider Nurse Practitioner Women's Health | DX: Z20.2 Contact with and (suspected) exposure to infections with a predominantly sexual mode of transmission (principal) | CPT/HCPCS: 87491; 87529; 87591 ==

== ENCOUNTER 2024-03-13 08:44 | Outpatient (CLI) | payer OTHER, SELFPAY ==
--- NOTE | 2024-03-13 08:50 | MM_ITS ---
WS: [id number] BILATERAL SCREENING DIGITAL TOMOSYNTHESIS MAMMOGRAM WITH CAD HISTORY: SCREENING COMPARISON: 07/14/2021, 10/14/2019 Bilateral CC and MLO views with tomosynthesis and synthetic mammography submitted. Computer aided det ection analyzed. Breast composition: The breasts are heterogeneously dense, which may obscure small masses. No suspici ous masses, microcalcifications or architectural distortion. MM/[place] [id number] IMPRESSION: BI-RADS: 1-Negative FOLLOW UP: 1 Year Follow-up
== END 2024-03-13 08:45 | disposition home or self-care (01) ==
LOC: RAD 08:45
PROVIDERS: PCP Family Medicine; Visit Provider Family Medicine
DX: Z12.31 Encounter for screening mammogram for malignant neoplasm of breast (principal)
CPT/HCPCS: 77063; 77067

== ENCOUNTER 2025-03-17 14:11 | Outpatient (CLI) | payer OTHER, SELFPAY ==
--- NOTE | 2025-03-17 14:17 | MM_ITS ---
WS: [id number] BILATERAL 3D TOMOSYNTHESIS DIGITAL SCREENING MAMMOGRAPHY WITH CAD CLINICAL INFORMATION: SCREENING HISTORY: Screening mammogram. No current complaints. COMPARISON: 2023 TECHNIQUE: Bilateral CC and MLO views. FINDINGS: Scattered fibroglandular densities bilaterally. No suspicious focal mass, asymmetry, calcifications, or architectural distortion. No evidence of malignancy. Incidental punctate calcification LEFT breast. MM/MM scr tomosynthesis [id number] IMPRESSION: DENSITY: There are scattered areas of fibroglandular density. BI-RADS: 2 - Benign. FOLLOW UP: 1 Year Follow-up Recommend return to annual screening mammography.
== END 2025-03-17 14:12 | disposition home or self-care (01) ==
LOC: RAD 14:13
PROVIDERS: PCP Family Medicine; Visit Provider Family Medicine
DX: Z12.31 Encounter for screening mammogram for malignant neoplasm of breast (principal); R92.323 Mammographic fibroglandular density, bilateral breasts; R92.1 Mammographic calcification found on diagnostic imaging of breast
CPT/HCPCS: 77063; 77067

== ENCOUNTER → 2025-05-12 10:44 | Outpatient (BNVA) | payer OTHER, SELFPAY | PROVIDERS: PCP Family Medicine; Visit Provider Nurse Practitioner | DX: J02.9 Acute pharyngitis, unspecified (principal) | CPT/HCPCS: 87071; 87880 ==